=== PATIENT | female | born 1950 | race Caucasian/White ===

== ENCOUNTER 2018-08-24 11:22 | Outpatient (CLI) | payer MEDICARE ==
[2018-08-24 12:50] LABS: BASOPHILS % (AUTO) 0.4 % (0-1); EOSINOPHILS # (AUTO) 0.2 X10'3 (0-0.9); EOSINOPHILS % (AUTO) 1.7 % (0-6); HEMATOCRIT 42.7 % (35.0-45.0); HEMOGLOBIN 14.1 g/dl (12.0-16.0); LYMPHOCYTES # (AUTO) 2.1 X10'3 (1.1-4.8); LYMPHOCYTES % (AUTO) 21.8 % (21-51); MEAN CORPUSCULAR HEMOGLOBIN 29.6 PG (27.0-31.0); MEAN CORPUSCULAR HGB CONC 32.9 % (33.0-36.5); MEAN CORPUSCULAR VOLUME 90.1 FL (78-98); MEAN PLATELET VOLUME 8.4 FL (7.4-10.4); MONOCYTES # (AUTO) 0.5 X10'3 (0-0.9); MONOCYTES % (AUTO) 4.7 % (2-12); NEUTROPHILS # (AUTO) 6.9 X10'3 (1.8-7.7); NEUTROPHILS % (AUTO) 71.4 % (42-75); PLATELET COUNT 273 X10'3 (140-440); RED BLOOD COUNT 4.74 X10'6 (4.20-5.60); RED CELL DISTRIBUTION WIDTH 14.3 % (11.5-14.5); WHITE BLOOD COUNT 9.6 X10'3 (4.5-11.0)
[2018-08-24 12:59] LABS: ALANINE AMINOTRANSFERASE 16 U/L (12-78); ALBUMIN 3.4 G/DL (3.4-5.0); ALKALINE PHOSPHATASE 94 IU/L (46-116); ANION GAP 9 (8-16); ASPARTATE AMINO TRANSFERASE 12 U/L (10-37); BILIRUBIN,TOTAL 0.3 MG/DL (0.1-1.0); BLOOD UREA NITROGEN 11 MG/DL (7-18); BUN/CREATININE RATIO 19.3 (6.6-38.0); CALCIUM 9.1 MG/DL (8.5-10.1); CHLORIDE 103 MMOL/L (99-107); CREATININE 0.57 MG/DL (0.40-0.90); GLUCOSE 108 MG/DL (70-104); POTASSIUM 3.6 MMOL/L (3.5-5.1); SODIUM 140 MMOL/L (135-145); TOTAL CARBON DIOXIDE 28.1 MMOL/L (24-32); TOTAL PROTEIN 6.7 G/DL (6.4-8.2); eGFR > 90 ML/MIN
[2018-08-24 13:01] LABS: PARTIAL THROMBOPLASTIN TIME 29 SECONDS (22-32); PROTHROMBIN TIME 10.1 SECONDS (9.0-12.0)
== END 2018-08-24 23:59 | disposition home or self-care (01) ==
LOC: LAB 11:22
PROVIDERS: ATTEND Otolaryngology
DX: D69.1 Qualitative platelet defects (principal); Z87.891 Personal history of nicotine dependence
CPT/HCPCS: 36415; 80053; 85025; 85576; 85610; 85730

== ENCOUNTER 2020-06-16 07:02 | Day surgery (SDC) | payer MEDICARE ==
[2020-06-06 15:21] LABS: BASOPHILS % (AUTO) 0.5 % (0-1); EOSINOPHILS # (AUTO) 0.1 X10'3 (0-0.9); EOSINOPHILS % (AUTO) 1.3 % (0-6); LYMPHOCYTES # (AUTO) 2.3 X10'3 (1.1-4.8); LYMPHOCYTES % (AUTO) 31.5 % (21-51); MEAN CORPUSCULAR HEMOGLOBIN 29.2 PG (27.0-31.0); MEAN CORPUSCULAR HGB CONC 32.6 g/dL (33.0-36.5); MEAN CORPUSCULAR VOLUME 89.5 FL (78-98); MONOCYTES # (AUTO) 0.6 X10'3 (0-0.9); MONOCYTES % (AUTO) 7.7 % (2-12); NEUTROPHILS # (AUTO) 4.3 X10'3 (1.8-7.7); PRE OP HEMATOCRIT 39.3 % (35.0-45.0); PRE OP HEMOGLOBIN 12.8 g/dL (12.0-16.0); PRE OP PLATELET COUNT 277 X10'3 (140-440); RED BLOOD COUNT 4.39 X10'6 (4.20-5.60); RED CELL DISTRIBUTION WIDTH 14.2 % (11.5-14.5)
[2020-06-06 15:39] LABS: ALBUMIN 3.4 G/DL (3.4-5.0); ALBUMIN/GLOBULIN RATIO 1.1 (1.1-1.5); ALKALINE PHOSPHATASE 83 IU/L (46-116); BLOOD UREA NITROGEN 8 MG/DL (7-18); BUN/CREATININE RATIO 12.7 (6.6-38.0); CALCIUM 8.8 MG/DL (8.5-10.1); CHLORIDE 107 MMOL/L (99-107); CREATININE 0.63 MG/DL (0.40-0.90); PRE OP ALT 14 U/L (30-65); PRE OP ANION GAP 5 (8-16); PRE OP AST 12 U/L (10-37); PRE OP BILIRUB, TOTAL 0.3 MG/DL (0.0-1.0); PRE OP GLUCOSE 84 MG/DL (70-104); PRE OP SODIUM 141 MMOL/L (135-145); TOTAL CARBON DIOXIDE 28.7 MMOL/L (24-32); TOTAL PROTEIN 6.5 G/DL (6.4-8.2); eGFR > 90 ML/MIN
[~2020-06-16] VITALS: Ht 160 cm; Wt 59.0 kg
[2020-06-16] VITALS (9 sets, daily range): BP systolic 106–133; BP diastolic 57–79
[~2020-06-16 07:02] MED LIST: ATOR20TA12 PO; GABA-530 PO; LEVE750T6 PO; ceFAZolin 1GM/D5W- ADD-VANTAGE 50 ML IV ONE; ringers solution, lacted 1,000 ML IV SCH
[2020-06-16] MEDS ORDERED: bacitracin 15gm ointment TP ONE (07:57)
[2020-06-16] MEDS ORDERED: dexamethasone sod phosphate 10mg/ml inj ONE (08:10)
[2020-06-16] MEDS ORDERED: sevoflurane 250ml liquid IH ONE (08:10)
[2020-06-16] MEDS ORDERED: fentaNYL/PF 50MCG/1 ML 2ML syringe ONE (08:20)
[2020-06-16] MEDS ORDERED: midazolam 2 mg/2 ml injection ONE (08:20)
[2020-06-16] MEDS ORDERED: LIDOcaine 2% (20mg/ml) 5ml vial ONE (08:39)
[2020-06-16] MEDS ORDERED: propofol inj 20 ML IV ONE (08:39)
[2020-06-16] MEDS ORDERED: ondansetron/PF 4mg/2ml inj ONE (08:39)
[2020-06-16] MEDS ORDERED: ringers solution, lacted 1,000 ML IV SCH (08:49)
[2020-06-16] MEDS ORDERED: ondansetron/PF 4mg/2ml inj IV PRN (08:50)
[2020-06-16] MEDS ORDERED: morphine 2 MG/ML inj. syringe IV PRN (08:50)
[2020-06-16] MEDS ORDERED: meperidine/PF 25mg/ml syringe IV PRN ×2 (08:50)
[2020-06-16] MEDS ORDERED: proCHLORperazine 10 MG/2 ml inj IV PRN (08:50)
--- NOTE | 2020-06-16 10:03 | NUR ---
Received from OR via [facility] , accompanied by Anesthesiologist HOLLAND and report given by Anesthesiolgist. PATIENT WITH 20G PIV IN LEFT UE RUNNING LR AT 100. DENIES PAIN AT THIS TIME. RIGHT LE IN BOOT WITH NO DRAINAGE. + CAP REFILL AND SENSATION TO TOES AND FOOT. WILL MEDICATE FOR PAIN Addendum: 06/16/20 at 1010 by Jase Calle RN, RN Amended: Links added.
[2020-06-16] MEDS: meperidine/PF 25mg/ml syringe IV PRN ×2 (10:13→10:30)
[2020-06-16] MEDS: morphine 4 MG/ML inj SYRINge IV PRN ×2 (10:19→10:59)
[2020-06-16] MEDS ORDERED: acetaminophen 1,000mg/100ml IV 100 ML IV PRN (10:20)
--- NOTE | 2020-06-16 11:13 | NUR ---
PATIENT AND FAMILY AND THEY HAVE VERBALIZED UNDERSTANDING, OPPORTUNITY TO ASK QUESTIONS GIVEN AND PATIENT COMFORTABLE WITH DC. IV TAKEN OUT WITHOUT COMPLICATION. PATIENT HAS MET ALL DC CRITERIA FOR DC HOME. I HAVE REVIEWED D/C INSTRUCTIONS WITH OUT VIA WHEELCHAIR WHERE PATIENT WAS TAKEN HOME WITH ALL BELONGINGS. FAMILY GAVE PATIENT TRANSPORT HOME. PATIENT ASSISTED INTO BACK SEAT OF VEHICLE WHERE RLE WAS UP AGAINST BACK OF SEATS. CAST ELEVATOR PROVIDED TO PATIENT AND ASSISTED IN SETTTING UP RLE FOR RIDE HOME. PATIENT PAIN AT A TOLERABLE LEVEL AND ALL DC INSTRUCTIONS COVERED WITH PATIENT. SMALL BLOODY AREA TO RIGHT GREAT TOE AREA. ALL CONTAINED WITHIN DRESSING AND WAS PRESENT FROM OR. Addendum: 06/16/20 at 1150 by Jase Calle RN, RN Amended: Links added.
== END 2020-06-16 11:13 | disposition home or self-care (01) ==
LOC: PAS 07:02
PROVIDERS: ATTEND Podiatrist Foot & Ankle Surgery
DX: T84.84XA Pain due to internal orthopedic prosthetic devices, implants and grafts, initial encounter (principal); M25.871 Other specified joint disorders, right ankle and foot; M19.071 Primary osteoarthritis, right ankle and foot; M19.072 Primary osteoarthritis, left ankle and foot; G89.18 Other acute postprocedural pain; M81.0 Age-related osteoporosis without current pathological fracture; Z88.8 Allergy status to other drugs, medicaments and biological substances; Z79.899 Other long term (current) drug therapy; Z20.828 Contact with and (suspected) exposure to other viral communicable diseases; Z90.710 Acquired absence of both cervix and uterus; Z98.890 Other specified postprocedural states; Z72.89 Other problems related to lifestyle; Z87.891 Personal history of nicotine dependence; Z80.9 Family history of malignant neoplasm, unspecified; Z82.61 Family history of arthritis; Y83.8 Other surgical procedures as the cause of abnormal reaction of the patient, or of later complication, without mention of misadventure at the time of the procedure; Y92.89 Other specified places as the place of occurrence of the external cause
CPT/HCPCS: 20680; 28315; 28750; 36415; 64447; 64450; 73630; 76000; 80053; 82948; 85025; 87635; 93005; A6223; C1713; J0131; J0690; J1100; J2001; J2175; J2250; J2270; J2405; J2704; J3010; J7120; A4215; A4618; A6253; A6449; A7000

== ENCOUNTER 2023-11-13 12:47 | Outpatient (CLI) | payer MEDICARE ==
[~2023-11-13 12:47] MED LIST changes: -ceFAZolin 1GM/D5W- ADD-VANTAGE 50 ML IV ONE; -ringers solution, lacted 1,000 ML IV SCH
== END 2023-11-13 23:59 | disposition home or self-care (01) ==
LOC: RAD 12:47
PROVIDERS: ATTEND Pediatrics Sports Medicine
DX: M25.512 Pain in left shoulder (principal); M47.812 Spondylosis without myelopathy or radiculopathy, cervical region; M50.30 Other cervical disc degeneration, unspecified cervical region; M46.1 Sacroiliitis, not elsewhere classified; M25.551 Pain in right hip; M47.816 Spondylosis without myelopathy or radiculopathy, lumbar region; M51.37 Other intervertebral disc degeneration, lumbosacral region; R07.81 Pleurodynia
CPT/HCPCS: 71250

== ENCOUNTER 2023-12-04 10:50 | Outpatient (CLI) | payer MEDICARE | END 2023-12-04 23:59 | disposition home or self-care (01) | LOC: RAD 10:50 | PROVIDERS: ATTEND Pediatrics Sports Medicine | DX: M47.814 Spondylosis without myelopathy or radiculopathy, thoracic region (principal); M48.04 Spinal stenosis, thoracic region; M25.78 Osteophyte, vertebrae; M47.812 Spondylosis without myelopathy or radiculopathy, cervical region; M50.30 Other cervical disc degeneration, unspecified cervical region; M46.1 Sacroiliitis, not elsewhere classified; M47.816 Spondylosis without myelopathy or radiculopathy, lumbar region; M51.37 Other intervertebral disc degeneration, lumbosacral region; R07.81 Pleurodynia; M25.512 Pain in left shoulder; M25.551 Pain in right hip; M54.50 Low back pain, unspecified | CPT/HCPCS: 72128 ==

== ENCOUNTER 2025-06-27 09:17 | Outpatient (CLI) | payer MEDICARE ==
--- NOTE | 2025-06-27 11:57 | RADIOLOGY REPORT ---
EXAM: CT CT LUMBAR SPINE HISTORY: LOW BACK PAIN, CERVICALGIA, SACROILITIS COMPARISON: None TECHNIQUE: Noncontrast axial CT images of the lumbar spine were performed. Sagittal and coronal reformatted images were obtained. This CT exam was performed using one or more of the following dose reduction techniques: Automated exposure control, adjustment of the mA and/or kv according to patient size, or the use of iterative reconstruction techniques. Radiation Dose: CT Dose: CTDI volume is 11.06 mGy. Dose-length product is 381.42 mGy*cm FINDINGS: No vertebral body fractures are identified about the lumbar spine. There is bilateral L5 spondylolysis with grade 1 anterolisthesis L5 on S1 measuring 7 mm AP. There is advanced lumbar degenerative disc disease and facet arthropathy. There is nrui-ex-bimndvse spinal canal stenosis at L3-L4; mild spinal canal stenosis at L4-L5. There is significant neural foraminal stenosis at L3-L4 on the left and L5-S1 bilaterally. There may be trace bilateral pleural effusions, not fully imaged here. There are atherosclerotic calcifications of the abdominal aorta and major branches. The left renal vein is circumaortic. There are degenerative changes of the bilateral sacroiliac joints. There is fecal retention in the colon, better appreciated on the developmental mathematics professor view. IMPRESSION: 1. No vertebral body fracture of the lumbar spine. 2. 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 3. Advanced lumbar degenerative disc disease and facet arthropathy with significant neural foraminal stenosis at L3-4 on the left and L5-S1 bilaterally. These findings may correspond to lower extremity radicular symptoms in the left L3 and bilateral L5 nerve root distributions. Consider follow-up noncontrast MRI of the lumbar spine for better characterization on a nonemergent basis. 4. Atherosclerotic vascular disease. 5. Fecal retention in the colon which may indicate constipation.
== END 2025-06-27 23:59 | disposition home or self-care (01) ==
LOC: RAD 09:17
PROVIDERS: ATTEND Pediatrics Sports Medicine
DX: M51.370 Other intervertebral disc degeneration, lumbosacral region with discogenic back pain only (principal); M47.817 Spondylosis without myelopathy or radiculopathy, lumbosacral region; M43.17 Spondylolisthesis, lumbosacral region; M48.07 Spinal stenosis, lumbosacral region; K63.89 Other specified diseases of intestine; I70.0 Atherosclerosis of aorta; M19.09 Primary osteoarthritis, other specified site; M46.1 Sacroiliitis, not elsewhere classified; M25.512 Pain in left shoulder; M47.812 Spondylosis without myelopathy or radiculopathy, cervical region; M50.30 Other cervical disc degeneration, unspecified cervical region; M25.551 Pain in right hip; R07.81 Pleurodynia
CPT/HCPCS: 72131